=== PATIENT | male | born 1965 | race Caucasian/White ===

== ENCOUNTER 2016-08-08 15:48 | Emergency (ER) | payer OTHER ==
[2016-08-08 16:12] LABS: BASOPHIL 0.7 % (0-2); EOSINOPHIL 0.7 % (0-5); HCT 43.3 % (42.0-52.0); LYMPHOCYTE 24.7 % (15-48); MCH 29.4 pg (25.0-31.0); MCHC 34.6 g/dL (32.0-36.0); MCV 84.9 fL (78.0-100.0); MONOCYTE 8.9 % (0-12); MPV 10.3 fL (6.0-9.5); PLT 236 K/uL (150-400)
[2016-08-08 16:26] LABS: INR 1.02 (0.9-1.2); PTT 26.4 SECONDS (23.2-31.4)
[2016-08-08 16:33] LABS: ALBUMIN 4.6 g/dL (3.5-5.0); BILIRUBIN - TOTAL 0.5 mg/dL (0.1-1.0); CREATININE 1.2 mg/dL (0.7-1.2); GLOBULIN (CALCULATION) 2.7 g/dL (2.2-4.2); MAGNESIUM 2.35 mg/dL (1.40-2.10); POTASSIUM 3.7 mmol/L (3.5-5.1); TOTAL PROTEIN 7.3 g/dL (6.4-8.3)
[2016-08-08 16:46] LABS: MYOGLOBIN 97 ng/mL (26-65); PRO-BNP 45 pg/mL (0-125); TROPONIN T < 0.010 ng/mL
[2016-08-08 16:48] LABS: CKMB 5.53 ng/mL (0.97-4.94)
[2016-08-08 18:33] LABS: AMPHETAMINES NEGATIVE (NEGATIVE); BARBITURATES NEGATIVE (NEGATIVE); BENZODIAZEPINES NEGATIVE (NEGATIVE); COCAINE NEGATIVE (NEGATIVE); MARIJUANA (THC) NEGATIVE (NEGATIVE); METHADONE NEGATIVE (NEGATIVE); TRICYCLIC ANTIDEPRESSANT NEGATIVE (NEGATIVE)
== END 2016-08-08 20:19 | disposition home or self-care (01) ==
LOC: FER 15:48
PROVIDERS: Internal Medicine
DX: R07.2 Precordial pain (principal); R06.02 Shortness of breath; K21.9 Gastro-esophageal reflux disease without esophagitis; Z79.899 Other long term (current) drug therapy; Z82.49 Family history of ischemic heart disease and other diseases of the circulatory system
CPT/HCPCS: 36415; 71010; 80053; 80305; 82550; 82553; 83735; 83874; 83880; 84484; 85025; 85610; 85730; 93005